=== PATIENT | male | born 1970 ===

== ENCOUNTER 2023-11-14 22:40 | Emergency (ER) | payer MEDICAID, OTHER ==
[2023-11-14] MEDS: Sodium Chloride 0.9% 1,000 ML IV SCH (23:50)
[2023-11-15 00:14] LABS: HEMOGLOBIN 13.7 g/dL (13.0-18.0); MEAN CORPUSCULAR HEMOGLOBIN 29.8 pg (27.0-32.0); MEAN CORPUSCULAR HGB CONC 34.3 g/dL (31.0-35.0); MEAN PLATELET VOLUME 10.5 fL (6.0-10.0); RED BLOOD CELL COUNT 4.59 M/uL (4.50-6.50); RED CELL DISTRIBUTION WIDTH 13.7 % (11.0-16.0); WHITE BLOOD CELL COUNT,WBC 7.8 K/uL (4.0-11.0)
[2023-11-15 00:27] LABS: A/G RATIO 1.2 (0.8-2.0); ALBUMIN 3.8 g/dL (3.4-5.0); ANION GAP 20.7 mmol/L (5.0-15.0); BILIRUBIN TOTAL 0.3 mg/dL (0.0-1.0); BUN/CREATININE RATIO 7.7 (6-25); CALCIUM 8.4 mg/dL (8.5-10.1); CARBON DIOXIDE,CO2 21.8 mmol/L (21.0-32.0); CREATININE 1.04 mg/dL (0.70-1.30); EST CRCL DRUG DOSING (CG) 78.56 mL/min; POTASSIUM,K 3.5 mmol/L (3.5-5.1); PROTEIN TOTAL,TP 6.9 g/dL (6.4-8.2)
== END 2023-11-15 01:25 | disposition home or self-care (01) ==
LOC: LB.ED 22:44
DX: F10.920 Alcohol use, unspecified with intoxication, uncomplicated (principal); V89.2XXA Person injured in unspecified motor-vehicle accident, traffic, initial encounter
CPT/HCPCS: 36415; 70450; 71250; 72125; 74176; 80053; 80307; 85027; 93005; 93010; 96360; 96361; 99283; 99284; J7030